=== PATIENT | male | born 1975 | race Caucasian/White ===

== ENCOUNTER 2016-05-27 13:59 | Emergency (ER) | payer SELFPAY ==
[~2016-05-27] VITALS: Ht 177.8 cm; Wt 80.0 kg
[2016-05-27 14:04] VITALS: BP 147/91; PULSE 58; RESP 20; TEMP 97.8; O2SAT 98
--- NOTE | 2016-05-27 15:28 | PD ---
HPI Chief Complaint: Medication Refill Request Time Seen by Provider: 15:25 Travel History International Travel<30 days: No Contact w/Intl Traveler<30days: No Traveled to known affect area: No History of Present Illness HPI Patient is a 40 year-old male who presents emergency for evaluation of elevated blood pressure reading as well as blurry vision. Patient states he made himself ashley and eggs for breakfast this morning and after he ate breakfast he felt his vision was blurry. He states is positive for approximately 20 minutes , he then went to [facility] to have his blood pressure checked and it was 140/90. He then presented to the emergency room for further evaluation stating that his normal blood pressure reading is in the 120s over 80s. He denies any chest pain , shortness of breath, fever, chills, or blurry vision, photophobia PFSH Past Medical History Medical History: Denies Significant Hx Social History Alcohol Use: No Tobacco Use: No Substance Use: No Allergies-Medications (Allergen,Severity, Reaction): Coded Allergies: No Known Allergies (Verified , 05/27/16) Reported Meds & Prescriptions Reported Meds & Active Scripts Active No Active Prescriptions or Reported Medications Review of Systems Except as stated in HPI: all other systems reviewed are Neg General / Constitutional: No: Fever, Chills Eyes: No: Blurred Vision, Photophobia, Pain, Visual changes HENT: No: Headaches Cardiovascular: No: Chest Pain or Discomfort Respiratory: No: Shortness of Breath Gastrointestinal: No: Nausea, Abdominal Pain Musculoskeletal: No: Myalgias Physical Exam Narrative GENERAL: Well-nourished, well-developed patient. SKIN: Warm and dry. HEAD: Normocephalic. EYES: No scleral icterus. Mild injection on the lateral aspect of the left and right eye. Patient states that this is his norm and has been there for approximately 6 years. Extraocular movements are intact. NECK: Supple, trachea midline. No JVD or lymphadenopathy. CARDIOVASCULAR: Regular rate and rhythm without murmurs, gallops, or rubs. RESPIRATORY: Breath sounds equal bilaterally. No accessory muscle use. GASTROINTESTINAL: Abdomen soft, non-tender, nondistended. MUSCULOSKELETAL: No cyanosis, or edema. BACK: Nontender without obvious deformity. No CVA tenderness. Data Data Last Documented VS Vital Signs Date Time Temp Pulse Resp B/P Pulse Ox O2 Delivery O2 Flow Rate FiO2 1/25/17 14:04 97.8 58 20 147/91 98 Room Air MDM Medical Decision Making Medical Screen Exam Complete: Yes Emergency Medical Condition: Yes Interpretation(s) Vital Signs Date Time Temp Pulse Resp B/P Pulse Ox O2 Delivery O2 Flow Rate FiO2 05/27/16 14:04 97.8 58 20 147/91 98 Room Air Differential Diagnosis Hypertension versus retinopathy versus elevated blood pressure reading versus other Narrative Course Patient is a 40-year-old male who presented to emergency department for evaluation of an episode of blurry vision this morning and an elevated blood pressure reading. Visual acuity is 20/25 bilaterally, patient's blood pressure is mildly elevated at 147/91 however discussed with patient that one elevated blood pressure reading does not give him the diagnosis of hypertension. He was encouraged to establish care with a primary doctor or in the community clinic. Patient was given pamphlets regarding the community clinic as well as community resources. He was encouraged to avoid excessive salt intake. He was encouraged to drink plenty of water. He was encouraged return to emergency department for any new or worsening symptoms. He verbalized understanding of these instructions. Patient is stable for discharge. Physician Communication Physician Communication Dr. Chowdhury Diagnosis Primary Impression: Elevated blood pressure reading Additional Impression: History of blurred vision Referrals: [facility] [employer] Patient Instructions: Blurred Vision (ED), General Instructions, How to Take a Blood Pressure (DC), Hypertension (ED) Additional Instructions: Follow-up with a primary doctor or at the community clinic Return to emergency department for any new or worsening symptoms Limit intake of salt and salty foods, fast food Drink plenty of water Med/Other Pt SpecificInfo: No Change to Meds Scripts No Active Prescriptions or Reported Meds Disposition: 01 DISCHARGE HOME Condition: Stable Marcelo,Cadykat HARVEY May 27, 2016 15:28
== END 2016-05-27 16:06 | disposition home or self-care (01) ==
LOC: NEPB 13:59
DX: R03.0 Elevated blood-pressure reading, without diagnosis of hypertension (principal); H53.8 Other visual disturbances
CPT/HCPCS: 99283